=== PATIENT | female | born 1990 | race Caucasian/White ===

== ENCOUNTER 2021-01-25 18:26 | Emergency (ER) | payer MEDICAID ==
[~2021-01-25] VITALS: Ht 165.1 cm; Wt 60.8 kg
[2021-01-25] MEDS ORDERED: HYDROCORTISONE 1% CREAM 30 GM TUBE TP ONE ×2 (19:15→19:19)
[2021-01-25] MEDS ORDERED: CEphaleXIN 500 MG CAPSULE PO ONE (19:15)
--- NOTE | 2021-01-25 19:15 | NUR ---
Dr. Will at bedside for MSE.
[2021-01-25] MEDS ORDERED: HYDR15CR41 TP (19:19)
[2021-01-25] MEDS ORDERED: CEPH500T PO (19:19)
--- NOTE | 2021-01-25 19:33 | NUR ---
Due meds given.
[2021-01-25] MEDS ORDERED: CEphaleXIN 500 MG CAPSULE ONE (19:37)
--- NOTE | 2021-01-25 19:40 | NUR ---
Patient discharged to home in stable condition. Written and verbal after care instructions given. Patient verbalizes understanding of instructions. Stressed follow up or return to ER for worsening s/s. All belongings with patient.
[2021-01-25 20:02] VITALS: BP 109/70
== END 2021-01-25 19:40 | disposition home or self-care (01) ==
LOC: ER 19:04
DX: R21 Rash and other nonspecific skin eruption (principal)
CPT/HCPCS: A4663